=== PATIENT | female | born 1980 | race Caucasian/White ===

== ENCOUNTER 2021-04-30 18:57 | Emergency (ER) | payer BC, SELFPAY ==
[2021-04-30 18:59] VITALS: BP 134/81; PULSE 107; RESP 16; TEMP 36.6; O2SAT 98; BMI 30.9
--- NOTE | 2021-04-30 20:02 | CT_ITS ---
PROCEDURE INFORMATION: Exam: CT Abdomen And Pelvis With Contrast Exam date and time: 04/30/2021 8:02 PM Age: 40 years old Clinical indication: Abdominal pain; Prior surgery; Surgery type: Appendix; Patient HX: Epigastric pain with nausea for 1 day; Additional info: Abd pain TECHNIQUE: Imaging protocol: Computed tomography of the abdomen and pelvis with contrast. Radiation optimization: All CT scans at this facility use at least one of these dose optimization techniques: automated exposure control; mA and/or kV adjustment per patient size (includes targeted exams where dose is matched to clinical indication); or iterative reconstruction. Contrast material: ISOVUE; Contrast volume: 75 ml; Contrast route: IV; COMPARISON: No relevant prior studies available. FINDINGS: Liver: Normal. Tiny too small to characterize hypodense lesion in the right lobe of the liver could reflect a tiny cyst. Gallbladder and bile ducts: Normal. No calcified stones. No ductal dilation. Pancreas: Normal. No ductal dilation. Spleen: Normal. No splenomegaly. Adrenal glands: Normal. No mass. Kidneys and ureters: Normal. No hydronephrosis. Stomach and bowel: Unremarkable. No obstruction. No mucosal thickening. Appendix: Appendectomy. Intraperitoneal space: Unremarkable. No free air. No significant fluid collection. Vasculature: Unremarkable. No abdominal aortic aneurysm. Lymph nodes: Unremarkable. No enlarged lymph nodes. Urinary bladder: Unremarkable as visualized. Reproductive: Unremarkable as visualized. Bones/joints: Unremarkable. No acute fracture. Soft tissues: Unremarkable. IMPRESSION: No acute findings.
[2021-04-30 20:18] LABS: Microscopic, Urine URINE MICROSCOPIC (MICROSCOPIC)
[2021-04-30 20:20] LABS: Basophils % 0.3 % (0.1-2.0); Eosinophils % 0.1 % (0.1-12.0); Hemoglobin 14.3 g/dL (12.2-16.2); Lymphocytes # 0.6 K/mm3 (0.7-4.5); Lymphocytes % 6.8 % (10-50); Mean Corpuscular HGB Conc 32.6 g/dL (31.8-35.4); Mean Corpuscular Hemoglobin 29.2 pg (27.0-31.2); Mean Corpuscular Volume 89.6 fl (81-99); Mean Platelet Volume 8.4 fl (7.4-10.4); Monocytes # 0.2 K/mm3 (0.1-1.0); Monocytes % 2.1 % (1.7-9.3); Neutrophils # 7.8 K/mm3 (1.8-7.8); Neutrophils % 90.8 % (37.0-80.0); Platelet Count 284 K/mm3 (142-424); Red Blood Count 4.91 M/mm3 (4.20-5.40); Red Cell Distribution Width 14.2 % (11.5-17.5); White Blood Count 8.6 K/mm3 (4.8-10.8)
[2021-04-30 20:21] LABS: Chloride 101 mmol/L (98-107); MANUAL DIFFERENTIAL MANUAL DIFFERENTIAL (MANUAL DIFF); Potassium 3.7 mmoL/L (3.5-5.1); Sodium 136 mmol/L (136-145)
[2021-04-30 20:24] LABS: Alanine Aminotransferase 19 U/L (12-78); Alkaline Phosphatase 125 U/L (38-126); Amylase 68 U/L (30-110); Aspartate Amino Transferase 27 U/L (14-36); Bilirubin,Total 0.4 mg/dl (0.2-1.3); Blood Urea Nitrogen 10 mg/dl (7-17); Calcium 8.8 mg/dl (8.4-10.2); Carbon Dioxide 25 mmol/L (22.0-30.0); Creatinine Clearance Estimated 161 mL/min (50-200); Estimated Glomerular Filt Rate 111 ml/min (>60); GFR (African American) 134 ML/MIN (>60); Glucose 106 mg/dl (74-100); Lipase 70 U/L (23-300)
[2021-04-30 20:25] LABS: Albumin Level 4.4 g/dl (3.5-5.0); Albumin/Globulin Ratio 1.4 (1.1-1.8); Globulin 3.2 g/dL (1.3-3.2); Total Protein,Serum 7.6 g/dl (6.3-8.2)
--- NOTE | 2021-04-30 20:26 | [facility].EDNVD ---
ED Disposition Clinical Impression: Abdominal pain Qualifiers: Abdominal location: epigastric Qualified Code(s): R10.13 - Epigastric pain Disposition: Home, Self-Care Condition on Discharge: Good Instructions: DI for Acute Abdominal Pain Referrals: Nabila Galicia [Primary Care Provider] - - Critical Care Critical Care Time: No Attestation: On 04/30/21, the high probability of a clinically significant, sudden or life threatening deterioration of the following system(s) required my full and direct attention, intervention and personal management. The time I documented below is in addition to time spent performing reported procedures but includes the following listed in this critical care notation. Medical Decision Making - Medical Records Medical records reviewed: Yes: I reviewed the patient's medical records. - Jasiel Inquiry Pt receiving controlled substance: No Vital Signs: 04/30/21 18:59 Temperature 97.9 F Temperature Source Oral Pulse Rate [Right] 107 H Respiratory Rate 16 Blood Pressure [Right Arm] 134/81 Blood Pressure Mean [Right Arm] 98 02 Sat by Pulse Oximetry 98 - Lab Data Lab results reviewed: Yes: I reviewed the patient's lab results. Lab Results 04/30/21 19:56: Urine Color Yellow, Urine Appearance Clear, Urine pH 7.0, Ur Specific [place] <= 1.005, Urine Protein Negative, Urine Glucose (UA) Negative, Urine Ketones Negative, Urine Blood Negative, Urine Nitrate Negative, Urine Bilirubin Negative, Urine Urobilinogen 0.2, Ur Leukocyte Esterase Negative, Urine RBC None, Urine WBC None, Ur Squamous Epith Cells 3-5, Urine Bacteria None 04/30/21 19:56: WBC 8.6, RBC 4.91, Hgb 14.3, Hct 44.0, MCV 89.6, MCH 29.2, MCHC 32.6, RDW 14.2, Plt Count 284, MPV 8.4, Neut % (Auto) 90.8 H, Lymph % (Auto) 6.8 L, Walker % (Auto) 2.1, Eos % (Auto) 0.1, Baso % (Auto) 0.3, Neut # (Auto) 7.8, Lymph # (Auto) 0.6 L, Walker # (Auto) 0.2, Eos # (Auto) 0.0, Baso # (Auto) 0.0, Total Counted 100, Neutrophils % (Manual) 93 H, Lymphocytes % (Manual) 7 L, Platelet Estimate Normal, RBC Morphology Normal 04/30/21 19:56: Urine HCG, Qual Negative 04/30/21 19:56: Sodium 136, Potassium 3.7, Chloride 101, Carbon Dioxide 25, BUN 10, Creatinine 0.60, Estimated Creat Clear 161, Estimated GFR 111, Est GFR ( Amer) 134, Glucose 106 H, Calcium 8.8, Total Bilirubin 0.4, AST 27, ALT 19, Alkaline Phosphatase 125, C-Reactive Protein 54.2 H, Total Protein 7.6, Albumin 4.4, Globulin 3.2, Albumin/Globulin Ratio 1.4, Amylase 68, Lipase 70 Result diagrams: 04/30/21 19:56 04/30/21 19:56 Orders (Tests/Meds): ED MEDICATIONS Generic Name Dose Route Start Last Admin Trade Name Frefarheen PRN Reason Stop Dose Admin Sodium Chloride 1,000 mls @ 999 mls/hr 04/30/21 20:15 04/30/21 20:26 Sod Chlor 0.9% 1000ml Bag IV 04/30/21 21:15 999 mls/hr .Q1H1M RANDI Administration Sodium Chloride 8 ml 04/30/21 20:03 Sodium Chloride 0.9% 10ml Vial IV 05/30/21 20:02 NEEDED PRN dilute pepcid Discontinued Medications Generic Name Dose Route Start Last Admin Trade Name Freq PRN Reason Stop Dose Admin Famotidine 20 mg 04/30/21 20:03 04/30/21 20:51 Famotidine 20mg/2ml Vial IV 04/30/21 20:04 20 mg ONCE ONE Administration Iopamidol 75 ml 04/30/21 21:04 04/30/21 21:04 Iopamidol-370 (76%);100ml Bottle IV 04/30/21 21:05 75 ml ONCE ONE Administration Ketorolac Tromethamine 30 mg 04/30/21 20:03 04/30/21 20:51 Ketorolac 30mg/Ml Vial IV 04/30/21 20:04 30 mg ONCE ONE Administration Metoclopramide HCl 10 mg 04/30/21 20:03 04/30/21 20:51 Metoclopramide Hcl 10mg/2ml Vial IVP 04/30/21 20:04 10 mg ONCE ONE Administration Ondansetron HCl 4 mg 04/30/21 20:03 04/30/21 20:51 Ondansetron 4mg/2ml Vial IV 04/30/21 20:04 4 mg ONCE ONE Administration Promethazine HCl 25 mg 04/30/21 21:38 04/30/21 21:39 Promethazine Hcl 25mg/Ml 1ml Vial IV 04/30/21 21:39 25 mg ONCE ONE Administration Sodium Chlori
[2021-04-30 20:30] LABS: C-Reactive Protein 54.2 mg/L (0-4)
[2021-04-30 20:42] LABS: Appearance,Urine CLEAR (Clear); Bilirubin,Urine Negative (Negative); Blood, Urine Negative (Negative); Color,Urine YELLOW (Yellow); Glucose,Urine (UA) Negative (Negative); Ketones,Urine Negative (Negative); Leukocyte Esterase,Urine Negative (Negative); Nitrate,Urine Negative (Negative); Protein,Urine Negative (Negative); Specific Gravity, Urine <= 1.005 (1.005-1.030); Urobilinogen,Urine 0.2 EU/dl (0.2)
[2021-04-30 20:48] LABS: Urine Pregnancy, HCG Qual. Negative (Negative)
[2021-04-30 21:21] LABS: Lymphocytes % 7 % (10-50); Neutrophils % 93 % (42-76); Platelet Estimate Normal; RBC Morphology Normal; Total Cells Counted 100
[2021-04-30 21:54] VITALS: BP 134/76; PULSE 100; RESP 16; TEMP 36.6; O2SAT 99
[2021-04-30 21:57] LABS: Erythrocyte Sedimentation Rate 14 mm/hr (0-20)
[2021-04-30 21:58] LABS: Anion Gap 13.7 mEq/L (5-15)
[2021-04-30 22:16] LABS: Procalcitonin 0.182 ng/mL (0.0-2.0)
== END 2021-04-30 21:56 | disposition home or self-care (01) ==
PROVIDERS: Emergency Provider Emergency Medicine; PCP Family Medicine
DX: R10.13 Epigastric pain (principal); R10.10 Upper abdominal pain, unspecified
CPT/HCPCS: 74177; 80053; 81001; 81025; 82150; 83690; 84145; 85007; 85025; 85651; 86140; 96365; 96375; 99283; J2405; Q9967

== ENCOUNTER 2023-07-10 20:42 | Emergency (ER) | payer SELFPAY ==
[2023-07-10 20:44] VITALS: BP 171/99; PULSE 83; RESP 16; TEMP 36.5; O2SAT 97; BMI 30.9
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
[2023-07-10] MEDS: ACETAMINOPHEN 500MG TAB 1000 MG PO (21:21)
[2023-07-10] MEDS: METHOCARBAMOL 500MG TABLET 1000 MG PO (21:21)
[2023-07-10 21:32] LABS: Urine Pregnancy, HCG Qual. Negative (Negative)
[2023-07-10 22:59] VITALS: BP 122/87; PULSE 72; RESP 16; TEMP 36.9; O2SAT 99
== END 2023-07-10 23:00 | disposition home or self-care (01) ==
PROVIDERS: Emergency Provider Emergency Medicine; PCP Family Medicine
DX: S16.1XXA Strain of muscle, fascia and tendon at neck level, initial encounter (principal); M54.50 Low back pain, unspecified; M79.605 Pain in left leg; M25.562 Pain in left knee; V49.40XA Driver injured in collision with unspecified motor vehicles in traffic accident, initial encounter
CPT/HCPCS: 71045; 72125; 72131; 72192; 73560; 81025; 99285